=== PATIENT | male | born 1965 | race Caucasian/White ===

== ENCOUNTER 2018-09-05 00:31 | Emergency (ER) | payer BC ==
[~2018-09-05] VITALS: Ht 167.6 cm; Wt 113.4 kg
[~2018-09-05 00:31] MED LIST: ATOR40TA70 PO; LISI1TAB8 PO; PANT40TA3 PO
[2018-09-05 00:53] LABS: BASOPHILS % (AUTO) 1 % (0-10); EOSINOPHILS # (AUTO) 0.3 10^3/uL (0.0-0.3); EOSINOPHILS % (AUTO) 4 % (0-10); HEMATOCRIT 44 % (40-54); HEMOGLOBIN 15.8 G/DL (13.3-17.7); LYMPHOCYTES # (AUTO) 1.7 X 10^3 (1.0-4.0); LYMPHOCYTES % (AUTO) 23 % (12-44); MEAN CORPUSCULAR HEMOGLOBIN 33 PG (25-34); MEAN CORPUSCULAR HGB CONC 36 G/DL (32-36); MEAN CORPUSCULAR VOLUME 91 FL (80-99); MEAN PLATELET VOLUME 10.5 FL (7.4-10.4); MONOCYTES # (AUTO) 0.8 X 10^3 (0.0-1.0); MONOCYTES % (AUTO) 11 % (0-12); NEUTROPHILS # (AUTO) 4.7 X 10^3 (1.8-7.8); NEUTROPHILS % (AUTO) 62 % (42-75); PLATELET COUNT 209 10^3/uL (130-400); RED CELL DISTRIBUTION WIDTH 12.4 % (10.0-14.5); WHITE BLOOD COUNT 7.6 10^3/uL (4.3-11.0)
[2018-09-05 01:13] LABS: ALANINE AMINOTRANSFERASE 38 U/L (0-55); ALBUMIN 4.5 GM/DL (3.2-4.5); ALKALINE PHOSPHATASE 84 U/L (40-136); BILIRUBIN,TOTAL 1.1 MG/DL (0.1-1.0); BUN/CREATININE RATIO 14; CALCIUM 10.1 MG/DL (8.5-10.1); CARBON DIOXIDE 20 MMOL/L (21-32); CHLORIDE 106 MMOL/L (98-107); CREATININE SERUM 0.79 MG/DL (0.60-1.30); GFR ESTIMATED > 60; GLUCOSE 103 MG/DL (70-105); POTASSIUM 4.1 MMOL/L (3.6-5.0); SODIUM 137 MMOL/L (135-145); TOTAL PROTEIN 6.8 GM/DL (6.4-8.2)
[2018-09-05 01:36] LABS: FREE T4 (FREE THYROXINE) 0.85 NG/DL (0.70-1.48)
[2018-09-05] MEDS ORDERED: RT-ALBUTEROL SULF 2.5 MG/3 ML PRE-MIX VIAL INH STA (01:37)
--- NOTE | 2018-09-05 01:37 | ED General ---
General Chief Complaint: Oral/Throat Problems Stated Complaint: POSS ALLERGIC RXN, PT STS AIR WAY OBSTRUCTION Nursing Triage Note: AMBULATORY TO ED WITH C/O TROUBLE SWALLOWING, TROUBLE CATCHING BREATH, AND "OBSTRUCTION" TO AIRWAY THAT STARTED TUESDAY AND NOW FEELS WORSE. DENIES NEW MEDICATIONS OR FOODS. STATES WORSE WHEN LAYING DOWN. DENIES PAIN BUT STATES IS "UNCOMFORTABLE". SWALLOWS FOOD OK, DENIES EPIGASTRIC PAIN. PT BREATHING EVEN, UNLABORED DURING TRIAGE. DR. GUNDERSON AT BEDSIDE AND DYSPHAGIA SCREEN PERFORMED WITHOUT DIFFICULTY. Nursing Sepsis Screen: No Definite Risk Source of Information: Patient Exam Limitations: No Limitations History of Present Illness Date Seen by Provider: September 05, 2018 Time Seen by Provider: 00:30 Initial Comments This 53-year-old gentleman presents to the emergency room complaining of a sensation of obstruction with swallowing and difficulty catching his breath. He feels like he has "airway obstruction". This sensation started on September 01. His reports he seemed to be wheezing and short of breath while working in the yard. The area of the lower neck and upper chest feels "uncomfortable". He is able to swallow food and drink without difficulty. He denies any other symptoms such as fever, vomiting, etc. This is a new problem for him. He did try his a lbuterol inhaler tonight without significant benefit. He has history of a parathyroid removal for hyperparathyroidism that was causing renal stones 20 years ago. Allergies and Home Medications Allergies Coded Allergies: ciprofloxacin (Verified Allergy, Unknown, 10/07/15) flu vaccine ts 2012- (4 yr+) (Verified Allergy, Unknown, 10/07/15) ibuprofen (Verified Allergy, Unknown, 10/07/15) Home Medications Atorvastatin Calcium 40 Mg Tablet, 1 TAB PO DAILY, (Reported) Lisinopril/Hydrochlorothiazide 1 Each Tablet, 1 TAB PO DAILY, (Reported) Pantoprazole Sodium 40 Mg Tablet., 1 TAB PO DAILY, (Reported) Patient Home Medication List Home Medication List Reviewed: Yes Review of Systems Review of Systems Constitutional: no symptoms reported EENTM: no symptoms reported Respiratory: see HPI Cardiovascular: no symptoms reported Gastrointestinal: see HPI Genitourinary: no symptoms reported Musculoskeletal: no symptoms reported Skin: no symptoms reported Psychiatric/Neurological: No Symptoms Reported Hematologic/Lymphatic: No Symptoms Reported Immunological/Allergic: no symptoms reported Past Oprylwz-Ocddfy-Uylqix Hx Past Med/Social Hx: Reviewed and Corrections made Patient Social History Alcohol Use: Denies Use Recreational Drug Use: No Smoking Status: Never a Smoker Recent Foreign Travel: No Contact w/Someone Who Travel: No Recent Infectious Disease Expo: No Recent Hopitalizations: No Seasonal Allergies Seasonal Allergies: No Past Medical History Surgeries: Yes (cyst removal;PARATHYROIDECTOMY ') Gallbladder, Orthopedic, Tonsillectomy Respiratory: Yes Asthma Cardiac: Yes High Cholesterol, Hypertension Neurological: No Genitourinary: Yes Kidney Stones, Renal Failure Gastrointestinal: Yes Gastroesophageal Reflux Musculoskeletal: Yes Arthritis Endocrine: Yes (hyperparathyroidism status post parathyroidectomy) HEENT: No Cancer: No Psychosocial: No Integumentary: No Blood Disorders: No Adverse Reaction/Blood Tranf: No Physical Exam Vital Signs Vital Signs - First Documented 09/05/18 09/05/18 00:37 02:05 Temp 97.4 Pulse 73 Resp 18 B/P (MAP) 147/92 (110) Pulse Ox 94 O2 Delivery Room Air Capillary Refill : Less Than 3 Seconds Height, Weight, BMI Height: 5'6" Weight: 250lbs. oz. 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 II-XII Norm as Tested Skin: Normal Color, Warm/Dry Progress/Results/Core Measures Suspected Sepsis Recent Fever Within 48 Hours: No Infection Criteria Present: None New/Unexplained Altered Menta: No Sepsis Screen: No Definite Risk SIRS Temperature:97.4 Pulse: 73 Respiratory Rate: 18 Laboratory Tests 09/05/18 00:45: White Blood Count 7.6 Blood Pressure 147 /92 Mean: 110 Laboratory Tests 09/05/18 00:45: Creatinine 0.79, Platelet Count 209, Total Bilirubin 1.1H Results/Orders Lab Results Laboratory Tests Test 5/28/19 00:45 Range/Units White Blood Count 7.6 4.3-11.0 10^3/uL Red Blood Count 4.81 4.35-5.85 10^6/uL Hemoglobin 15.8 13.3-17.7 G/DL Hematocrit 44 40-54 % Mean Corpuscular Volume 91 80-99 FL Mean Corpuscular Hemoglobin 33 25-34 PG Mean Corpuscular Hemoglobin Concent 36 32-36 G/DL Red Cell Distribution Width 12.4 10.0-14.5 % Platelet Count 209 130-400 10^3/uL Mean Platelet Volume 10.5 H 7.4-10.4 FL Neutrophils (%) (Auto) 62 42-75 % Lymphocytes (%) (Auto) 23 12-44 % Monocytes (%) (Auto) 11 0-12 % Eosinophils (%) (Auto) 4 0-10 % Basophils (%) (Auto) 1 0-10 % Neutrophils # (Auto) 4.7 1.8-7.8 X 10^3 Lymphocytes # (Auto) 1.7 1.0-4.0 X 10^3 Monocytes # (Auto) 0.8 0.0-1.0 X 10^3 Eosinophils # (Auto) 0.3 0.0-0.3 10^3/uL Basophils # (Auto) 0.0 0.0-0.1 10^3/uL Sodium Level 137 135-145 MMOL/L Potassium Level 4.1 3.6-5.0 MMOL/L Chloride Level 106 98-107 MMOL/L Carbon Dioxide Level 20 L 21-32 MMOL/L Anion Gap 11 5-14 MMOL/L Blood Urea Nitrogen 11 7-18 MG/DL Creatinine 0.79 0.60-1.30 MG/DL Estimat Glomerular Filtration Rate > 60 BUN/Creatinine Ratio 14 Glucose Level 103 70-105 MG/DL Calcium Level 10.1 8.5-10.1 MG/DL Corrected Calcium 9.7 8.5-10.1 MG/DL Total Bilirubin 1.1 H 0.1-1.0 MG/DL Aspartate Amino Transf (AST/SGOT) 22 5-34 U/L Alanine Aminotransferase (ALT/SGPT) 38 0-55 U/L Alkaline Phosphatase 84 40-136 U/L B-Type Natriuretic Peptide < 10.0 <100.0 PG/ML Total Protein 6.8 6.4-8.2 GM/DL Albumin 4.5 3.2-4.5 GM/DL Thyroid Stimulating Hormone (TSH) 2.25 0.35-4.94 UIU/ML Free Thyroxine 0.85 0.70-1.48 NG/DL My Orders Orders - SAMMIE GUNDERSON MD Chest Pa/Lat (2 View) (09/05/18 00:43) Ed Iv/Invasive Line Start (09/05/18 00:43) Cbc With Automated Diff (09/05/18 00:43) Comprehensive Metabolic Panel (09/05/18 00:43) Thyroid Stimulating Hormone (09/05/18 00:43) Free T4 (Free Thyroxine) (09/05/18 00:43) Albuterol Pre-Mix Nebs (Rt) (Proventil (09/05/18 01:37) Svn Small Volume Nebulizer (09/05/18 01:37) Albuterol/Ipra Inhalation Soln (Duoneb I (09/05/18 01:45) Svn Small Volume Nebulizer (09/05/18 01:40) BNP (09/05/18 02:15) Medications Given in ED Current Medications Medications Dose Ordered Sig/Yomi Route Start Time Stop Time Status Last Admin Dose Admin Albuterol/ Ipratropium 3 ml ONCE ONCE INH 09/05/18 01:45 09/05/18 01:46 DC 09/05/18 01:52 3 ML Vital Signs/I&O 09/05/18 09/05/18 09/05/18 00:37 02:05 02:40 Temp 97.4 97.4 Pulse 73 70 Resp 18 18 B/P (MAP) 147/92 (110) 145/90 (108) Pulse Ox 94 95 O2 Delivery Room Air Room Air Capillary Refill : Less Than 3 Seconds Blood Pressure Mean: 110 Progress Note : Progress Note Labs and chest x-ray revealed no cause for his symptoms. DuoNeb treatment was provided for suspected asthma exacerbation. This did improve his symptoms but not resolved them. See discharge instructions for further discussion about possible causes and suggested plan for further evaluation.. Diagnostic Imaging Diagonstic Imaging: Xray Plain Films/CT/US/NM/MRI: chest Comments Chest x-ray viewed by me. Report not yet available. No acute abnormalities appreciated. Departure Impression Primary Impression: Dyspnea Qualified Codes: R06.00 - Dyspnea, unspecified Additional Impression: Asthma exacerbation Qualified Codes: J45.901 - Unspecified asthma with (acute) exacerbation Disposition: 01 HOME, SELF-CARE Condition: Improved Departure-Patient Inst. Decision time for Depature: 02:28 Referrals: MORALES EUBANKS DO (PCP) Primary Care Physician POOJA BARTLETT APRN (Family) Primary Care Physician Patient Instructions: Asthma in Adults Add. Discharge Instructions: The exact cause of your sensation of obstruction is uncertain but could be related to asthma exacerbation, allergies, laryngopharyngeal reflux (acid reflux), obesity, etc. Try using an antihistamine such as Claritin (loratadine) or Zyrtec (cetirizine). You may use your inhaler more liberally, up to 4 puffs and a 4 hour period of time, if you're having shortness of breath. You may try using an antacid medication such as omeprazole or Pepcid (famotidine) in addition to dietary changes as acid reflux may be a contributing factor. Avoid the following: Eating large meals, eating close to bedtime, caffeine, carbonation, chocolate, citrus fruits and juices, tomato products, alcohol, tobacco, NSAID medications such as ibuprofen or naproxen, mints, spicy foods, fatty or greasy foods, or anything else you know irritates your stomach. Weight reduction and elevating your head at night may also help. If the above measures are not helping, discuss further workup with your primary care provider. This might include thyroid ultrasound or CT imaging. Side effects from lisinopril may also be causing this sensation. Consider changing to an alternative blood pressure medication. Please discuss these things with your primary care provider soon as possible. Please call later today for an appointment. Return to the emergency room if you're having worsening symptoms. If you develop any true shortness of breath, swelling of the lips, swelling of the tongue, or swelling of the throat, please return to the emergency room immediately or call 911. All discharge instructions reviewed with patient and/or family. Voiced understanding. SAMMIE GUNDERSON MD September 05, 2018 01:37
[2018-09-05] MEDS ORDERED: RT-ALBUTEROL/IPRATROPIUM 3 ML (DUONEB) VIAL INH ONE (01:45)
[2018-09-05 02:40] VITALS: BP 145/90
--- NOTE | 2018-09-05 06:45 | Diagnostic Imaging Report ---
INDICATION: Difficulty swallowing and catching breath. FINDINGS: The lungs are clear. The heart size and vascularity within normal limits. There is no effusion or pneumothorax. IMPRESSION: No acute appearing abnormality. Dictated by: Dictated on workstation # [id number]
== END 2018-09-05 02:44 | disposition home or self-care (01) ==
LOC: EDUNIT# 00:31 → ER 00:33
DX: J45.901 Unspecified asthma with (acute) exacerbation (principal); K21.9 Gastro-esophageal reflux disease without esophagitis; E78.00 Pure hypercholesterolemia, unspecified; I10 Essential (primary) hypertension; E05.90 Thyrotoxicosis, unspecified without thyrotoxic crisis or storm; Z87.442 Personal history of urinary calculi; Z88.1 Allergy status to other antibiotic agents; Z88.6 Allergy status to analgesic agent; Z88.7 Allergy status to serum and vaccine; Z90.89 Acquired absence of other organs; Z98.890 Other specified postprocedural states
CPT/HCPCS: 36415; 71046; 80053; 83880; 84439; 84443; 85025; 94640

== ENCOUNTER 2019-12-04 09:13 | Emergency (ER) | payer BC ==
[~2019-12-04] VITALS: Ht 165 cm; Wt 90.9 kg
[~2019-12-04 09:13] MED LIST changes: +LISI1TAB25 PO; -LISI1TAB8 PO
--- NOTE | 2019-12-04 09:16 | NUR ---
PATIENT REPORTS HE WILL KEEP HIS UPDATED.
[2019-12-04] MEDS ORDERED: NITROGLYCERIN 0.4 MG SL TABS BTL 25'S SL PRN (09:30)
[2019-12-04 09:39] LABS: BASOPHILS % (AUTO) 1 % (0-10); EOSINOPHILS # (AUTO) 0.2 10^3/uL (0.0-0.3); EOSINOPHILS % (AUTO) 3 % (0-10); HEMATOCRIT 45 % (40-54); LYMPHOCYTES # (AUTO) 1.7 X 10^3 (1.0-4.0); LYMPHOCYTES % (AUTO) 20 % (12-44); MEAN CORPUSCULAR HEMOGLOBIN 32 PG (25-34); MEAN CORPUSCULAR HGB CONC 35 G/DL (32-36); MEAN CORPUSCULAR VOLUME 92 FL (80-99); MEAN PLATELET VOLUME 10.1 FL (7.4-10.4); MONOCYTES # (AUTO) 0.8 X 10^3 (0.0-1.0); MONOCYTES % (AUTO) 9 % (0-12); NEUTROPHILS # (AUTO) 5.7 X 10^3 (1.8-7.8); NEUTROPHILS % (AUTO) 68 % (42-75); PLATELET COUNT 225 10^3/uL (130-400); RED CELL DISTRIBUTION WIDTH 13.2 % (10.0-14.5); WHITE BLOOD COUNT 8.3 10^3/uL (4.3-11.0)
--- NOTE | 2019-12-04 09:49 | NUR ---
TO ROOM TO GIVE NITRO PATIENT REPORTS PAIN GONE DR TOSCANO.
[2019-12-04 09:53] LABS: INR 0.9 (0.8-1.4); PROTHROMBIN TIME PATIENT 12.4 SEC (12.2-14.7)
[2019-12-04 10:07] LABS: ALANINE AMINOTRANSFERASE 45 U/L (0-55); ALBUMIN 4.3 GM/DL (3.2-4.5); ALKALINE PHOSPHATASE 99 U/L (40-136); BILIRUBIN,TOTAL 0.7 MG/DL (0.1-1.0); BUN/CREATININE RATIO 15; CALCIUM 9.4 MG/DL (8.5-10.1); CARBON DIOXIDE 24 MMOL/L (21-32); CHLORIDE 104 MMOL/L (98-107); CREATININE SERUM 0.75 MG/DL (0.60-1.30); GFR ESTIMATED > 60; GLUCOSE 117 MG/DL (70-105); POTASSIUM 4.2 MMOL/L (3.6-5.0); SODIUM 137 MMOL/L (135-145)
--- NOTE | 2019-12-04 10:09 | Diagnostic Imaging Report ---
INDICATION: Chest pain. Frontal chest obtained at 0942 a.m. and compared to 09/05/2018. Heart and mediastinal silhouette are normal in appearance. The lungs are clear. There is no pneumothorax or pleural fluid. IMPRESSION: Negative chest. Dictated by: Dictated on workstation # [id number]
--- NOTE | 2019-12-04 10:18 | ED Chest Pain ---
General Chief Complaint: Chest Pain Stated Complaint: CHEST PAIN;SOA Nursing Triage Note: AMB TO ROOM C/O ONSET OF CHEST PAIN THIS AM. Nursing Sepsis Screen: No Definite Risk Source: patient Exam Limitations: no limitations History of Present Illness Date Seen by Provider: Dec 04, 2019 Time Seen by Provider: 09:18 Initial Comments This 54-year-old gentleman presents to emergency room with complaints of generalized chest heaviness rated as 4-5/10 upon waking this morning at 05:00. He also noted his blood pressure was rather elevated. He is mildly hypertensive upon arrival here. He reports negative stress test 1-2 years ago at [facility] in [place]. His associated symptoms today include lightheadedness and dizziness upon standing. He denies associated symptoms such as cough, fever, sh ortness of breath, nausea, etc. He has a mild chronic unchanged cough secondary to asthma. He denies any recent travel or exposures to COVID-19 or ill persons. He denies smoking or alcohol consumption. His primary care providers Dr. Sumit Livingston in [place]. Allergies and Home Medications Allergies Coded Allergies: ciprofloxacin (Verified Allergy, Unknown, 10/07/15) ibuprofen (Verified Allergy, Unknown, 10/07/15) [facility] (4 yr,up) (Verified Allergy, Unknown, 10/07/15) Home Medications Atorvastatin Calcium 40 Mg Tablet, 1 TAB PO DAILY, (Reported) Lisinopril/Hydrochlorothiazide 1 Each Tablet, 1 TAB PO DAILY, (Reported) Metoprolol Succinate 25 Mg Tab.er.24h, 25 MG PO DAILY Prescribed by: SAMMIE BAR on 12/04/19 1236 Pantoprazole Sodium 40 Mg Tablet.dr, 1 TAB PO DAILY, (Reported) Patient Home Medication List Home Medication List Reviewed: Yes Review of Systems Review of Systems Constitutional: no symptoms reported EENTM: No Symptoms Reported Respiratory: See HPI Cardiovascular: See HPI Gastrointestinal: No Symptoms Reported Genitourinary: No Symptoms Reported Musculoskeletal: no symptoms reported Skin: no symptoms reported Psychiatric/Neurological: No Symptoms Reported Endocrine: No Symptoms Reported Hematologic/Lymphatic: No Symptoms Reported Past Dduzzlp-Quvrri-Hxlcvi Hx Past Med/Social Hx: Reviewed Nursing Past Med/Soc Hx Patient Social History Alcohol Use: Denies Use Recreational Drug Use: No Smoking Status: Never a Smoker Recent Foreign Travel: No Contact w/Someone Who Travel: No Recent Infectious Disease Expo: No Recent Hopitalizations: No Seasonal Allergies Seasonal Allergies: No Past Medical History Surgeries: Yes (cyst removal;PARATHYROIDECTOMY ') Gallbladder, Orthopedic, Tonsillectomy Respiratory: Yes Asthma Cardiac: Yes High Cholesterol, Hypertension Neurological: No Genitourinary: Yes Kidney Stones, Renal Failure Gastrointestinal: Yes Gastroesophageal Reflux Musculoskeletal: Yes Arthritis Endocrine: Yes (hyperparathyroidism status post parathyroidectomy) HEENT: No Cancer: No Psychosocial: No Integumentary: No Blood Disorders: No Adverse Reaction/Blood Tranf: No Physical Exam Vital Signs Vital Signs - First Documented 12/04/19 12/04/19 09:15 10:40 Temp 36.2 Pulse 79 Resp 18 B/P (MAP) 148/89 (108) Pulse Ox 98 O2 Delivery Room Air Capillary Refill : Less Than 3 Seconds Height, Weight, BMI Height: 5'6" Weight: 250lbs. oz. 113.070156ao; 33.00 BMI Method:Stated General Appearance: No Apparent Distress, WD/WN, Obese HEENT: PERRL/EOMI, Normal ENT Inspection, Pharynx Normal Neck: Normal Inspection Respiratory: Chest Non Tender, Lungs Clear, Normal Breath Sounds, No Accessory Muscle Use, No Respiratory Distress Cardiovascular: Regular Rate, Rhythm, No Edema, No Murmur, Normal Peripheral Pulses Gastrointestinal: Normal Bowel Sounds, Non Tender, Soft Extremity: Normal Inspection, Non Tender, No Calf Tenderness, No Pedal Edema Neurologic/Psychiatric: Alert, Oriented x3, No Motor/Sensory Deficits, Normal Mood/Affect, [employer] II-XII Norm as Tested Skin: Normal Color, Warm/Dry Progress/Results/Core Measures Results/Orders Lab Results Laboratory Tests Test 12/04/19 09:30 12/04/19 09:55 12/04/19 11:08 Range/Units White Blood Count 8.3 4.3-11.0 10^3/uL Red Blood Count 4.94 4.35-5.85 10^6/uL Hemoglobin 16.0 13.3-17.7 G/DL Hematocrit 45 40-54 % Mean Corpuscular Volume 92 80-99 FL Mean Corpuscular Hemoglobin 32 25-34 PG Mean Corpuscular Hemoglobin Concent 35 32-36 G/DL Red Cell Distribution Width 13.2 10.0-14.5 % Platelet Count 225 130-400 10^3/uL Mean Platelet Volume 10.1 7.4-10.4 FL Neutrophils (%) (Auto) 68 42-75 % Lymphocytes (%) (Auto) 20 12-44 % Monocytes (%) (Auto) 9 0-12 % Eosinophils (%) (Auto) 3 0-10 % Basophils (%) (Auto) 1 0-10 % Neutrophils # (Auto) 5.7 1.8-7.8 X 10^3 Lymphocytes # (Auto) 1.7 1.0-4.0 X 10^3 Monocytes # (Auto) 0.8 0.0-1.0 X 10^3 Eosinophils # (Auto) 0.2 0.0-0.3 10^3/uL Basophils # (Auto) 0.0 0.0-0.1 10^3/uL Prothrombin Time 12.4 12.2-14.7 SEC INR Comment 0.9 0.8-1.4 Activated Partial Thromboplast Time 29 24-35 SEC Sodium Level 137 135-145 MMOL/L Potassium Level 4.2 3.6-5.0 MMOL/L Chloride Level 104 98-107 MMOL/L Carbon Dioxide Level 24 21-32 MMOL/L Anion Gap 9 5-14 MMOL/L Blood Urea Nitrogen 11 7-18 MG/DL Creatinine 0.75 0.60-1.30 MG/DL Estimat Glomerular Filtration Rate > 60 BUN/Creatinine Ratio 15 Glucose Level 117 H 70-105 MG/DL Calcium Level 9.4 8.5-10.1 MG/DL Corrected Calcium 9.2 8.5-10.1 MG/DL Magnesium Level 2.0 1.6-2.4 MG/DL Total Bilirubin 0.7 0.1-1.0 MG/DL Aspartate Amino Transf (AST/SGOT) 31 5-34 U/L Alanine Aminotransferase (ALT/SGPT) 45 0-55 U/L Alkaline Phosphatase 99 40-136 U/L Myoglobin 44.4 10.0-92.0 NG/ML Troponin I < 0.028 < 0.028 <0.028 NG/ML B-Type Natriuretic Peptide < 10.0 <100.0 PG/ML Total Protein 7.0 6.4-8.2 GM/DL Albumin 4.3 3.2-4.5 GM/DL TSH [place] Testing 1.63 0.35-4.94 UIU/ML My Orders Orders - SAMMIE GUNDERSON MD Cbc With Automated Diff (12/04/19:) Magnesium (12/04/19) Chest 1 View, Ap/Pa Only (12/04/19) Ekg Tracing (12/04/19:) Comprehensive Metabolic Panel (12/04/19) Myoglobin Serum (12/04/19) Protime With Inr (12/04/19) Partial Thromboplastin Time (12/04/19) O2 (12/04/19:) Monitor-Rhythm Ecg Trace Only (12/04/19) Lipid Panel (12/05/19 06:00) Ed Iv/Invasive Line Start (12/04/19) BNP (12/04/19:) Troponin I (12/04/19:) Nitroglycerin 0.4 Mg Btl 25's (Nitrostat (12/04/19 09:30) Thyroid Analyzer (12/04/19 10:17) Troponin I (12/04/19 11:30) Ekg Tracing (12/04/19 10:26) Vital Signs/I&O 12/04/19 12/04/19 09:15 10:40 Temp 36.2 Pulse 79 74 Resp 18 18 B/P (MAP) 148/89 (108) 137/83 (101) Pulse Ox 98 94 O2 Delivery Room Air Blood Pressure Mean: 108 Progress Progress Note #1: Time: 10:27 Progress Note Patient's aspirin dosing at home was sufficient. Nitroglycerin was ordered but was not given because his pain resolved shortly after assessment. He remains pain-free at this time as well. We will repeat an EKG and troponin at 2 hours to complete ACS rule out. Progress Note #2: Time: 12:47 Progress Note Patient remained free of any further chest pain or pressure. Repeat troponin in about 2 hours after the initial was negative. This troponin was also 6 hours after onset of pain. Repeat EKG was unchanged. There are subtle ST changes, likely consistent with early repolarization, possibly hypertension induced. ACS was effectively ruled out with repeat troponins, resolution of chest pain, and static EKGs. Case was discussed with Dr. Lee who also reviewed EKGs. Close follow-up with a hand buffing wheel former was recommended. Patient was informed that he can follow-up with Dr. Lee tomorrow if he so desired. The importance of seeing a hand buffing wheel former to complete his cardiac evaluation was stressed. Contact information was provided on the discharge papers. Dr. Lee also recommended patient be started on a beta juanito. Toprol-XL 25 mg was prescribed. Initial ECG Impression Date: Dec 04, 2019 Initial ECG Impression Time: 09:18 Initial ECG Rate: 77 Initial ECG Rhythm: Normal Sinus Initial ECG Intervals: Normal Initial ECG Impression: Normal Comment Normal sinus rhythm with no ST elevation or depression. No abnormal intervals or axis deviation. EKG : EKG Time: 11:05 Rate: 72 Rhythm: Normal Sinus Intervals: Normal Comment Sinus rhythm with subtle ST changes consistent with early repolarization. No definite ischemic changes. No significant changes from prior. No axis deviation or abnormal intervals. Diagnostic Imaging Diagonstic Imaging: Xray Plain Films/CT/US/NM/MRI: chest Comments Chest x-ray viewed by me and report reviewed. See report below: NAME: PREM HYATT [facility] REC#: [id number] PT STATUS: REG ER : 1965 PHYSICIAN: SAMMIE GUNDERSON MD ADMIT DATE: 12/04/19/ER Draft Date of Exam:12/04/19 CHEST 1 VIEW, AP/PA ONLY INDICATION: Chest pain. Frontal chest obtained at 0942 a.m. and compared to 09/05/2018. Heart and mediastinal silhouette are normal in appearance. The lungs are clear. There is no pneumothorax or pleural fluid. IMPRESSION: Negative chest. Dictated on workstation # [id number] Dict: 12/04/19 0959 Trans: 12/04/19 1008 BILL [id number] Interpreted by: WILLIAM ACOSTA MD Departure Impression Primary Impression: Chest pain Qualified Codes: R07.9 - Chest pain, unspecified Additional Impression: Essential hypertension Disposition: 01 HOME, SELF-CARE Condition: Improved Departure-Patient Inst. Decision time for Depature: 12:32 Referrals: MORALES LIVINGSTON DO (PCP) Primary Care Physician POOJA BARTLETT APRN (Family) Primary Care Physician JOSE LEE MD [facility] Patient Instructions: Chest Pain, High Blood Pressure (DC) Add. Discharge Instructions: Continue taking your present medications as previously directed including aspirin and lisinopril/HCTZ. Start Toprol-XL in the evening as prescribed. Follow-up with your primary care provider and a hand buffing wheel former as soon as possible. For your convenience Dr. Lee's contact information is below should you choose to follow-up with him. Return to the emergency room if you have worsening symptoms including persistent or more severe chest pain, shortness of breath, etc. All discharge instructions reviewed with patient and/or family. Voiced understanding. Scripts Metoprolol Succinate (Toprol Xl) 25 Mg Tab.er.24h 25 MG PO DAILY, #30 TAB Prov: SAMMIE GUNDERSON MD 12/04/19 Copy Copies To 1: JOSE LEE MD [facility] SAMMIE GUNDERSON MD Dec 04, 2019 10:18
[2019-12-04 10:40] VITALS: BP 137/83
--- NOTE | 2019-12-04 12:29 | NUR ---
AMB TO BATHROOM
[2019-12-04] MEDS ORDERED: METO-351 PO (12:36)
[2019-12-04 12:48] VITALS: BP 136/98
== END 2019-12-04 12:41 | disposition home or self-care (01) ==
LOC: EDUNIT# 09:13 → ER 09:14
DX: I10 Essential (primary) hypertension (principal); R05 Cough; E78.00 Pure hypercholesterolemia, unspecified; K21.9 Gastro-esophageal reflux disease without esophagitis; Z88.1 Allergy status to other antibiotic agents; Z88.6 Allergy status to analgesic agent; Z88.7 Allergy status to serum and vaccine
CPT/HCPCS: 36415; 71045; 80053; 83735; 83874; 83880; 84443; 84484; 85025; 85610; 85730; 93005; 93041